=== PATIENT | female | born 1960 | race Caucasian/White ===

== ENCOUNTER 2017-12-21 19:48 | Emergency (ER) | payer MEDICARE, OTHER | END 2017-12-21 21:37 | disposition home or self-care (01) | LOC: E/R 19:48 | DX: S60.221A Contusion of right hand, initial encounter (principal); W18.39XA Other fall on same level, initial encounter; Y92.9 Unspecified place or not applicable | CPT/HCPCS: 73130; 73130-RT; 99283-25 ==

== ENCOUNTER 2018-10-31 20:43 | Emergency (ER) | payer MEDICARE, OTHER | END 2018-10-31 23:58 | disposition home or self-care (01) | LOC: FTE 23:58 | DX: M23.92 Unspecified internal derangement of left knee (principal); M25.462 Effusion, left knee | CPT/HCPCS: 29505; 99283-25 ==